=== PATIENT | female | born 1985 | race Caucasian/White ===

== ENCOUNTER 2018-07-10 20:43 | Inpatient (IN) | payer BC ==
[2018-07-10 22:11] LABS: BASO % 0.1 % (0-2.0); EOS % 0.7 % (0-4.5); HEMATOCRIT 37.7 % (32.4-45.2); HEMOGLOBIN 12.4 GM/dL (10.7-15.3); MCH 28.1 pg (25.7-33.7); MEAN CELL VOLUME 85.1 fl (80-96); MEAN PLT VOLUME 9.1 fl (7.5-11.1); MONO % 7.8 % (3.8-10.2); NEUT % 79.4 % (42.8-82.8); PLATELET COUNT 186 K/MM3 (134-434); RBC 4.43 M/mm3 (3.60-5.2); RDW 18.6 % (11.6-15.6); WHITE BLOOD COUNT 12.6 K/mm3 (4.0-10.0)
[2018-07-10 22:19] VITALS: BMI 35.7
[2018-07-10 22:24] LABS: INR 0.95 (0.83-1.09); PROTHROMBIN TIME (PATIENT) 11.2 SEC (9.7-13.0)
[2018-07-10 22:28] LABS: ANION GAP 12 MMOL/L (8-16); BLOOD UREA NITROGEN 9 mg/dL (7-18); CALCIUM 8.6 mg/dL (8.5-10.1); CHLORIDE 107 mmol/L (98-107); CO2 22 mmol/L (21-32); CREATININE 0.3 mg/dL (0.55-1.3); GLUCOSE,RANDOM 90 mg/dL (74-106); POTASSIUM 3.6 mmol/L (3.5-5.1); SODIUM 141 mmol/L (136-145)
[2018-07-10] MEDS ORDERED: ONDANSETRON 4 MG/2 ML VIAL IVPUSH PRN (22:31)
[2018-07-10] MEDS ORDERED: ACETAMINOPHEN 325 MG TABLET (FP) PO PRN (22:31)
[2018-07-10] MEDS ORDERED: morphine SULFATE/Preservative Free 0.5 MG/ML (1cc Syringe) EP ONE (22:31)
[2018-07-10] MEDS ORDERED: morphine SULFATE/Preservative Free 0.5 MG/ML (1cc Syringe) ONE (22:38)
[2018-07-10] MEDS ORDERED: ceFAZolin SODIUM 1 GM VIAL ONE (22:40)
[2018-07-10] MEDS ORDERED: METHYLERGONOVINE MALEATE 0.2 MG/1 ML AMP IM PRN (22:47)
[2018-07-10] MEDS ORDERED: IBUPROFEN 600 MG TABLET (FP) PO PRN (22:47)
--- NOTE | 2018-07-10 22:52 | HP ---
Past Medical History - Admission Chief Complaint: painful contractions History of Present Illness: Pt with SIUP at 38+ weeks (EDC 07/21 by sonogram) here with painful contractions since 10am. Pt with previous c section X 2. No VB/LOF. +FM. complicated only by maternal obesity. History Source: Patient, Medical Record Limitations to Obtaining History: No Limitations - Past Medical History Cardiovascular: No: AFIB, HTN Pulmonary: No: Asthma, COPD Gastrointestinal: No: GERD Hepatobiliary: No: Hepatitis B, Hepatitis C Renal/: No: Renal Failure Reproductive: No: PID ...: 4 ...Para: 2 ...Term: 2 ...: 0 ...Spon : 1 ...Induced : 0 ...Multiple Gestation: 0 ...LMP: 10/05/17 ... Weeks Gestation by Dates: 39.5 ...EDC by Dates: 07/12/18 ...EDC by Sono: 07/21/18 Heme/Onc: No: Anemia Psych: No: Depression, Panic - Past Surgical History Past Surgical History: Yes: Hx Myomectomy: No Hx Transabdominal Cerclage: No - Smoking History Smoking history: Never smoked Have you smoked in the past 12 months: No Aproximately how many cigarettes per day: 0 - Alcohol/Substance Use Hx Alcohol Use: No - Social History Usual Living Arrangement: Yes: With Spouse History of Recent Travel: No Home Medications - Allergies Allergies/Adverse Reactions: Allergies Allergy/AdvReac Type Severity Reaction Status Date / Time No Known Allergies Allergy Verified 12/01/17 23:16 - Home Medications Home Medications: Ambulatory Orders Ondansetron [Zofran Odt -] 4 mg SL BID PRN #12 od.tablet 12/02/17 Review of Systems - Review of Systems Constitutional: reports: No Symptoms Eyes: reports: No Symptoms HENT: reports: No Symptoms Neck: reports: No Symptoms Cardiovascular: reports: No Symptoms Respiratory: reports: No Symptoms Gastrointestinal: reports: No Symptoms Genitourinary: reports: No Symptoms Breasts: reports: No Symptoms Reported Musculoskeletal: reports: No Symptoms Integumentary: reports: No Symptoms Neurological: reports: No Symptoms Endocrine: reports: No Symptoms Hematology/Lymphatic: reports: No Symptoms Psychiatric: reports: No Symptoms Physical Exam - Maternity Vital Signs: Vital Signs Temperature 98.7 F 07/10/18 21:30 Pulse Rate 92 H 07/10/18 21:30 Respiratory Rate 20 07/10/18 21:30 Blood Pressure 135/76 07/10/18 21:30 O2 Sat by Pulse Oximetry (%) Constitutional: Yes: Well Nourished, No Distress, Calm Eyes: Yes: Conjunctiva Clear HENT: Yes: Atraumatic Neck: Yes: Supple Cardiovascular: Yes: Regular Rate and Rhythm Lungs: Clear to auscultation Breast(s): Yes: WNL - Abdominal Exam/OB Fundal Height: 40 Number of Fetuses: Single Presentation: Vertex Contractions: Yes Regularity: Regular Intensity: Mod/Strong Category: I Accelerations: Uniform Decelerations: None - Vaginal Exam/OB Vaginal Bleediing: No Dilatation (cm): 4 Amniotic Membrane Status: Bulging - Physical Exam Psychiatric: Yes: Alert, Oriented - Labs Lab Results: CBC, BMP 07/10/18 21:40 07/10/18 21:40 Problem List - Problems (1) Active labor at term Code(s): [id number] - (2) History of section complicating Code(s): O34.219 - MATERNAL CARE FOR UNSP TYPE SCAR FROM PREVIOUS DEL Assessment/Plan 32 y/o with 2 prior c sections with EDC 07/12/18 by dates, 07/21/18 by sonogram here in labor. Plan for repeat c section consents signed marcelino catheter placed anesthesia aware
[2018-07-10] MEDS ORDERED: OXYTOCIN 20 UNITS in 0.9% NS 20 UNIT/1,000 ML INFUS.BAG IV SCH (23:00)
[2018-07-10] MEDS ORDERED: OXYTOCIN 20 UNITS in 0.9% NS 20 UNIT/1,000 ML INFUS.BAG IV ONE (23:10)
[2018-07-10] MEDS ORDERED: MIDAZOLAM HCL 2 MG/2 ML SINGLE DOSE VIAL ONE (23:20)
--- NOTE | 2018-07-10 23:41 | OP ---
Operative Note - Note: Operative Date: 07/10/18 Pre-Operative Diagnosis: previous c sectoion X 2 in labor Operation: repeat section, bilateral tubal ligation Findings: live male normal b/l tubes and ovaries Surgeon: Yajaira Pina Knocker Off: Gume Andre Anesthesiologist/WORKFORCE PLANNING ANALYST: Jordan Goetz Anesthesia: Spinal Specimens Removed: placenta Estimated Blood Loss (mls): 600 Operative Report Dictated: Yes
[2018-07-11] MEDS: IBUPROFEN 800 MG/8 ML IJ IVPB PRN ×2 (01:00→06:42)
[2018-07-11] MEDS ORDERED: OXYTOCIN 20 UNITS in 0.9% NS 20 UNIT/1,000 ML INFUS.BAG IV ONE (01:01)
[2018-07-11] MEDS ORDERED: IBUPROFEN 800 MG/8 ML IJ IVPB ONE (01:01)
[2018-07-11] MEDS ORDERED: CITRIC ACID/SODIUM CITRATE 30 ML UNIT-DOSE CUP PO ONE (02:30)
[2018-07-11] MEDS ORDERED: ELECTROLYTE-148 SOLN 500 ML IV ONE (02:45)
[2018-07-11] MEDS ORDERED: ELECTROLYTE-148 SOLN 1,000 ML IV SCH (03:15)
[2018-07-11 08:20] LABS: BASO % 0.1 % (0-2.0); EOS % 0.5 % (0-4.5); HEMOGLOBIN 10.7 GM/dL (10.7-15.3); LYMPH % 6.5 % (8-40); MCH 27.7 pg (25.7-33.7); MCHC 32.5 g/dl (32.0-36.0); MEAN CELL VOLUME 85.3 fl (80-96); MEAN PLT VOLUME 8.7 fl (7.5-11.1); MONO % 6.3 % (3.8-10.2); NEUT % 86.6 % (42.8-82.8); PLATELET COUNT 139 K/MM3 (134-434); RBC 3.86 M/mm3 (3.60-5.2); RDW 18.9 % (11.6-15.6); WHITE BLOOD COUNT 14.4 K/mm3 (4.0-10.0)
[2018-07-11] MEDS ORDERED: TUBERCULIN PPD 5 TU/0.1ML SYRINGE (IN PATIENT USE ONLY) ID ONE (09:00)
[2018-07-11] MEDS: IBUPROFEN 600 MG TABLET (FP) PO PRN ×4 (12:58→23:14)
[2018-07-11] MEDS: SIMETHICONE 80 MG TAB.CHEW (FP) PO PRN ×4 (13:07→23:13)
[2018-07-11] MEDS: oxyCODONE HCL 5 MG TABLET PO PRN ×3 (14:30→23:14)
--- NOTE | 2018-07-11 15:13 | PN ---
Post Progress Note - Subjective Subjective: Pt doing well, no complaints. Pain controlled, tolerating clears. Marcelino catheter still in and draining clear yellow urine. Not yet ambulatory. Pain controlled with medication. Post Day: 1 Type of Delivery: Repeat C/S Vital Signs: Vital Signs Temperature 99.4 F 07/11/18 13:22 Pulse Rate 114 H 07/11/18 13:22 Respiratory Rate 20 07/11/18 13:22 Blood Pressure 127/69 07/11/18 13:22 O2 Sat by Pulse Oximetry (%) 98 07/10/18 23:45 Uterus: Yes: Fundus Firm Incision: Yes: Dressing dry and intact Abdomen/GI: Yes: Abdomen soft Lochia: Yes: Rubra Lochia, amount: Small Extremities: Yes: Calves non-tender, Edema (trace b/l LE edema) Perineum: Yes: Intact - Labs Labs: CBC WBC 14.4 K/mm3 (4.0-10.0) H 07/11/18 07:05 RBC 3.86 M/mm3 (3.60-5.2) 07/11/18 07:05 Hgb 10.7 GM/dL (10.7-15.3) 07/11/18 07:05 Hct 33.0 % (32.4-45.2) 07/11/18 07:05 MCV 85.3 fl (80-96) 07/11/18 07:05 MCH 27.7 pg (25.7-33.7) 07/11/18 07:05 MCHC 32.5 g/dl (32.0-36.0) 07/11/18 07:05 RDW 18.9 % (11.6-15.6) H 07/11/18 07:05 Plt Count 139 K/MM3 (134-434) D 07/11/18 07:05 MPV 8.7 fl (7.5-11.1) 07/11/18 07:05 Absolute Neuts (auto) 12.5 K/mm3 (1.5-8.0) H 07/11/18 07:05 Neutrophils % 86.6 % (42.8-82.8) H 07/11/18 07:05 Lymphocytes % 6.5 % (8-40) L D 07/11/18 07:05 Monocytes % 6.3 % (3.8-10.2) 07/11/18 07:05 Eosinophils % 0.5 % (0-4.5) 07/11/18 07:05 Basophils % 0.1 % (0-2.0) 07/11/18 07:05 Nucleated RBC % 0 % (0-0) 07/11/18 07:05 Problem List - Problems (1) Active labor at term Code(s): VYW9806 - (2) History of section complicating Code(s): O34.219 - MATERNAL CARE FOR UNSP TYPE SCAR FROM PREVIOUS DEL (3) delivery delivered Code(s): O82 - ENCOUNTER FOR DELIVERY WITHOUT INDICATION (4) Admission for sterilization Code(s): Z30.2 - ENCOUNTER FOR STERILIZATION Assessment/Plan 32 y/o POD#1 s/p repeat c section and BTL, doing well. Pain controlled. continue PO pain meds advance diet as tolerated d/c marcelino encourage ambulation routine post op care
--- NOTE | 2018-07-11 15:36 | PN ---
Progress Note (short form) - Note Progress Note: Anesthesia POD#1 S/P C- Section under Spinal and DM VSS,no N/V,legs recovered,eating well. Amanda Darling MD.
--- NOTE | 2018-07-11 15:39 | OP ---
DATE OF OPERATION: 07/10/2018 PREOPERATIVE DIAGNOSIS: Previous section x2 in active labor. POSTOPERATIVE DIAGNOSIS: Previous section x2 in active labor. PROCEDURE: Repeat low transverse section and bilateral tubal ligation. SURGEON: Yajaira Pina DO GEOSPATIAL APPLICATIONS DEVELOPER: ROGER Portillo. ANESTHESIA: Spinal by Jordan Goetz MD COMPLICATIONS: None. ESTIMATED BLOOD LOSS: 600 mL. COUNTS: Sponge, needle, and instrument counts correct. SPECIMENS REMOVED: Placenta. DISPOSITION: Stable to PACU. BRIEF HISTORY AND PROCEDURE: The patient is a 32-year-old female who had been seen in Labor and Delivery with complaints of painful contractions. The patient was found to be 3 to 4 cm dilated with bulging membranes. The patient has a known prior history of 2 sections. The patient was admitted to [facility] and planned for a repeat section delivery at this time. Consents were signed. The patient expressed desire for permanent sterilization and consents were also signed for a bilateral tubal ligation at this time. The patient was taken back to the operating room. She was given a spinal anesthesia by Dr. Goetz without any difficulty. The patient was placed in the dorsal supine position. A Fisher catheter was placed under sterile conditions. She was prepped and draped in the usual sterile fashion and a hard-time out was performed. A Pfannenstiel skin incision was created in the skin with a scalpel and carried through the underlying layer of the rectus fascia sharply. The fascia was incised on either side of the midline and the fascial incision was carried in the superolateral direction sharply. The fascia was tented upward and dissected off the underlying layer of rectus muscle sharply. The musculature was identified and in the midline bluntly. The peritoneum was entered bluntly and a bladder blade was inserted. A low transverse incision on the uterus was created with a scalpel and extended in the superolateral direction bluntly. The was then developed from the LOP position. Bilateral shoulders were delivered with these along with the remainder of the . The cord was clamped twice and cut in between. A 3-vessel cord was noted. The infant was then taken over the warmer to be assessed by the neonatology staff. The placenta was then delivered manually and was noted to be intact. The uterus was exteriorized and the abdomen was inspected and cleared of all amniotic membrane and debrided with a dry lap sponge. Bilateral tubes and ovaries were noted to be normal. The hysterotomy was approximated with a double layer closure first using 1 Vicryl suture in a running locked fashion and the 2nd layer using 0 Biosyn suture in a running fashion. Excellent hemostasis was achieved. The posterior cul-de-sac was suctioned. The uterus was placed back in the abdomen and bilateral gutters were inspected and cleared of all blood clot and debris and one final examination of the hysterotomy revealed excellent hemostasis. The peritoneum was reapproximated in a running fashion using 2-0 chromic and the musculature was reapproximated in an interrupted suture using 2-0 chromic suture. The fascia was then reapproximated using 1 Vicryl in a running fashion, the subcutaneous tissue was irrigated and reapproximated using 0 Biosyn in a running fashion, and the skin was reapproximated in a subcuticular fashion using 3-0 Vicryl and Steri-Strips were applied. The patient tolerated the procedure well and was recovering in stable condition in the postoperative area after the procedure. * YAJAIRA PINA DO /[id number]
[2018-07-11] MEDS ORDERED: BISACODYL 10 MG SUPP.RECT RC PRN (22:47)
[2018-07-12] MEDS: SIMETHICONE 80 MG TAB.CHEW (FP) PO PRN ×5 (05:09→23:54)
[2018-07-12] MEDS: oxyCODONE HCL 5 MG TABLET PO PRN ×5 (05:10→23:54)
[2018-07-12] MEDS: IBUPROFEN 600 MG TABLET (FP) PO PRN ×5 (05:10→23:54)
--- NOTE | 2018-07-12 17:59 | PATH ---
Surgical Pathology Report Patient Name: AMBREEN MARCUM [facility]. Rec. #: [id number] /Age/Gender: 1985 (Age: 32) / F Account: [id number] Location: [facility] OBS/BUSINESS PROCESS MODELER Taken: 07/10/2018 Received: 07/11/2018 Reported: 07/12/2018 Physicians: Yajaira Pina M.D. Specimen(s) Received A: PLACENTA B: RIGHT FALLOPIAN TUBE C: LEFT FALLOPIAN TUBE Clinical History IUP, 38.5 weeks, previous section, in labor Previous section x2 Final Diagnosis A. PLACENTA, SECTION: 728 G THIRD TRIMESTER PLACENTA WITH TRIVASCULAR UMBILICAL CORD AND UNREMARKABLE PLACENTAL MEMBRANES. B. FALLOPIAN TUBE, RIGHT, SALPINGECTOMY: FULL LUMINAL SECTION OF FALLOPIAN TUBE WITH BENIGN WALTHARD CELL NEST AND PARATUBAL CYSTS. C. FALLOPIAN TUBE, RIGHT, SALPINGECTOMY: FULL LUMINAL SECTION OF UNREMARKABLE FALLOPIAN TUBE. Electronically Signed Yasmin Boyer M.D. Gross Description A. The specimen is received fresh labeled placenta and is a 728 gram, 23 x 19 x 2 cm. placenta with attached membranes and umbilical cord. The attached membranes are carson, translucent and insert marginally. The umbilical cord measures 50 cm. in length and averages 1.5 cm. in diameter. The cord inserts eccentrically, 3 cm. to the nearest margin. No true knots or strictures are identified. Cut surface of the umbilical cord reveals 3 vessels. The surface is zepeda-blue with minimal fibrin deposition and appropriate caliber vessels. The maternal surface is red-brown with focal defects. Sectioning reveals red-brown, spongy parenchyma. No lesions are identified. Head Of Sales And Marketing sections are submitted in three cassettes as follows: 1- membrane rolls and umbilical cord; 2-3- full thickness sections of placenta. B. Received in formalin labeled "right fallopian tube," is a 3 cm in length fimbriated fallopian tube. The outer surface is carson-price. Sectioning reveals an unremarkable lumen. The specimen is entirely submitted in one cassette. C. Received in formalin labeled "left fallopian tube," is a 2 cm in length fimbriated fallopian tube. The outer surface is carson-price. Sectioning reveals an unremarkable lumen. The specimen is entirely submitted in one cassette. MLSZ/07/11/2018 spenser07/11/2018
[2018-07-13] MEDS: SIMETHICONE 80 MG TAB.CHEW (FP) PO PRN ×3 (03:48→13:47)
[2018-07-13] MEDS: IBUPROFEN 600 MG TABLET (FP) PO PRN ×3 (03:48→13:47)
[2018-07-13] MEDS: oxyCODONE HCL 5 MG TABLET PO PRN ×3 (03:48→13:47)
[2018-07-13 08:08] LABS: BASO % 0.4 % (0-2.0); EOS % 3.5 % (0-4.5); HEMATOCRIT 32.1 % (32.4-45.2); LYMPH % 14.2 % (8-40); MCH 29.8 pg (25.7-33.7); MCHC 34.3 g/dl (32.0-36.0); MEAN CELL VOLUME 86.9 fl (80-96); MEAN PLT VOLUME 8.6 fl (7.5-11.1); MONO % 6.4 % (3.8-10.2); NEUT % 75.5 % (42.8-82.8); PLATELET COUNT 196 K/MM3 (134-434); RBC 3.69 M/mm3 (3.60-5.2); RDW 18.4 % (11.6-15.6); WHITE BLOOD COUNT 12.5 K/mm3 (4.0-10.0)
--- NOTE | 2018-07-13 08:23 | PN ---
Post Progress Note - Subjective Subjective: 32 yo Para 3 status post repeat , seen and evaluated. Doing well. Post Day: 3 Type of Delivery: Repeat C/S Vital Signs: Vital Signs Temperature 98.5 F 07/12/18 20:10 Pulse Rate 100 H 07/12/18 20:10 Respiratory Rate 20 07/12/18 20:10 Blood Pressure 122/75 07/12/18 20:10 O2 Sat by Pulse Oximetry (%) 98 07/10/18 23:45 Breast Exam: Yes: Soft Uterus: Yes: Fundus Firm Incision: Yes: Sutures intact Abdomen/GI: Yes: Abdomen soft, Tolerating PO Lochia: Yes: Rubra Lochia, amount: Small Extremities: Yes: Calves non-tender Activity: Ambulating - Labs Labs: CBC WBC 12.5 K/mm3 (4.0-10.0) H 07/13/18 07:00 RBC 3.69 M/mm3 (3.60-5.2) 07/13/18 07:00 Hgb 11.0 GM/dL (10.7-15.3) 07/13/18 07:00 Hct 32.1 % (32.4-45.2) L 07/13/18 07:00 MCV 86.9 fl (80-96) 07/13/18 07:00 MCH 29.8 pg (25.7-33.7) 07/13/18 07:00 MCHC 34.3 g/dl (32.0-36.0) 07/13/18 07:00 RDW 18.4 % (11.6-15.6) H 07/13/18 07:00 Plt Count 196 K/MM3 (134-434) D 07/13/18 07:00 MPV 8.6 fl (7.5-11.1) 07/13/18 07:00 Absolute Neuts (auto) 9.5 K/mm3 (1.5-8.0) H 07/13/18 07:00 Neutrophils % 75.5 % (42.8-82.8) 07/13/18 07:00 Lymphocytes % 14.2 % (8-40) D 07/13/18 07:00 Monocytes % 6.4 % (3.8-10.2) 07/13/18 07:00 Eosinophils % 3.5 % (0-4.5) D 07/13/18 07:00 Basophils % 0.4 % (0-2.0) D 07/13/18 07:00 Nucleated RBC % 0 % (0-0) 07/13/18 07:00 Problem List - Problems (1) Status post repeat low transverse section Code(s): Z98.891 - HISTORY OF UTERINE SCAR FROM PREVIOUS SURGERY Assessment/Plan Status post repeat Stable D/C home
--- NOTE | 2018-07-13 08:33 | DS ---
Physical Exam-CARBON GRINDER Vital Signs: Vital Signs Temperature 98.5 F 07/12/18 20:10 Pulse Rate 100 H 07/12/18 20:10 Respiratory Rate 20 07/12/18 20:10 Blood Pressure 122/75 07/12/18 20:10 O2 Sat by Pulse Oximetry (%) 98 07/10/18 23:45 Constitutional: Yes: Well Nourished Eyes: Yes: Conjunctiva Clear HENT: Yes: Atraumatic Neck: Yes: Supple Cardiovascular: Yes: Regular Rate and Rhythm Respiratory: Yes: Regular Gastrointestinal: Yes: Normal Bowel Sounds External Genitalia: Yes: Normal Vaginal Exam: Yes: Normal Cervix: Yes: Normal Uterus: Yes: Firm ....Post : Yes: Uterus firm Wound/Incision: Yes: Well Approximated Neurological: Yes: Alert, Oriented Psychiatric: Yes: Alert, Oriented Labs: CBC, BMP 07/13/18 07:00 07/10/18 21:40 Delivery - Delivery Type of Anesthesia: Spinal Episiotomy/Laceration: None EBL (cc): 600 Delivery, Single - Stages of Labor Date 1st Stage Initiatied: 07/10/18 Time 1st Stage Initiated: 18:00 Date of Delivery: 07/10/18 Time of Delivery: 23:03 Time Placenta Delivered: 23:05 - Condition of Full Time Babysitter/Book Canvasser Present: No Infant Gender: Male Weight: 8 lb Position: Left, OT - 1 Minute Total Score: 9 5 Minutes Total Score: 9 - [place] Feeding Plan Initial Plan: Elected not to breastfeed exclusively throughout hospitalization Discharge Summary Reason For Visit: ADMIT C/ SECTION Current Active Problems Active labor at term (Acute) Admission for sterilization (Acute) delivery delivered (Acute) History of section complicating (Acute) Status post repeat low transverse section (Acute) Procedures: Principal: Repeat Low Transverse Hospital Course: Routine post op care Condition: Good - Instructions Diet, Activity, Other Instructions: Regular diet No driving, no lifting x 4 weeks F/U with MD in 1 week Disposition: HOME - Home Medications Comprehensive Discharge Medication List: Ambulatory Orders Ondansetron [Zofran Odt -] 4 mg SL BID PRN #12 od.tablet 12/02/17
[2018-07-13 08:48] VITALS: BP 125/80; PULSE 76; TEMP 98
== END 2018-07-13 16:20 | disposition home or self-care (01) | DRG 785 ==
LOC: JDEL 20:43 → JLDR 21:30 → J3W 07-11 01:45
PROVIDERS: ADMIT Obstetrics & Gynecology; ATTEND Obstetrics & Gynecology
PROC: 10D00Z1 Extraction of Products of Conception, Low, Open Approach (ICD-10-PCS; principal; 2018-07-10)
PROC: 0UL70ZZ Occlusion of Bilateral Fallopian Tubes, Open Approach (ICD-10-PCS; 2018-07-10)
DX: O34.219 Maternal care for unspecified type scar from previous cesarean delivery (principal); Z3A.38 38 weeks gestation of pregnancy; Z37.0 Single live birth; Z30.2 Encounter for sterilization; O99.214 Obesity complicating childbirth; E66.8 Other obesity; Z68.35 Body mass index [BMI] 35.0-35.9, adult
CPT/HCPCS: 36415; 80048; 85025; 85610; 85730; 86593; 86850; 86900; 86901; 88302-TC; 88307-TC